=== PATIENT | female | born 1955 | race Caucasian/White ===

== ENCOUNTER 2019-06-07 10:58 | Observation (INO) | payer MEDICARE, BC ==
[2019-06-06 16:42] LABS: PARTIAL THROMBOPLASTIN TIME 29 SECONDS (22-32)
[2019-06-06 16:44] LABS: BASOPHILS # (AUTO) 0.1 X10'3 (0-0.2); BASOPHILS % (AUTO) 0.8 % (0-1); EOSINOPHILS # (AUTO) 0.2 X10'3 (0-0.9); EOSINOPHILS % (AUTO) 2.1 % (0-6); HEMOGLOBIN 13.9 g/dl (12.0-16.0); LYMPHOCYTES # (AUTO) 2.5 X10'3 (1.1-4.8); LYMPHOCYTES % (AUTO) 26.6 % (21-51); MEAN CORPUSCULAR HEMOGLOBIN 31.3 PG (27.0-31.0); MEAN CORPUSCULAR HGB CONC 34.7 g/dL (33.0-36.5); MEAN CORPUSCULAR VOLUME 90.3 FL (78-98); MEAN PLATELET VOLUME 8.1 FL (7.4-10.4); MONOCYTES # (AUTO) 0.8 X10'3 (0-0.9); MONOCYTES % (AUTO) 8.9 % (2-12); NEUTROPHILS # (AUTO) 5.8 X10'3 (1.8-7.7); NEUTROPHILS % (AUTO) 61.6 % (42-75); PLATELET COUNT 247 X10'3 (140-440); RED BLOOD COUNT 4.43 X10'6 (4.20-5.60); RED CELL DISTRIBUTION WIDTH 13.6 % (11.5-14.5); WHITE BLOOD COUNT 9.4 X10'3 (4.5-11.0)
[2019-06-06 16:57] LABS: ALBUMIN 3.8 G/DL (3.4-5.0); ANION GAP 7 (8-16); BLOOD UREA NITROGEN 22 MG/DL (7-18); BUN/CREATININE RATIO 28.2 (6.6-38.0); CALCIUM 9.5 MG/DL (8.5-10.1); CHLORIDE 105 MMOL/L (99-107); CREATININE 0.78 MG/DL (0.40-0.90); GLUCOSE 94 MG/DL (70-104); SODIUM 141 MMOL/L (135-145); TOTAL CARBON DIOXIDE 29.1 MMOL/L (24-32); eGFR 74 ML/MIN
[2019-06-07] VITALS (16 sets, daily range): BP systolic 79–165; BP diastolic 36–92
[~2019-06-07] VITALS: Ht 160 cm; Wt 77.2 kg
[2019-06-07] MEDS ORDERED: diphenhydrAMINE 25mg capsule PO PRN (11:25)
[2019-06-07] MEDS ORDERED: LORazepam 0.5 MG tablet PO PRN (11:25)
[2019-06-07] MEDS ORDERED: acetylcysteine 200 MG/ml 4ml vial PO PRN (11:30)
[2019-06-07] MEDS ORDERED: LIDOcaine/PRILOcaine 5gm cream TP ONE (11:40)
[2019-06-07] MEDS ORDERED: NAPR220T67 PO (11:55)
[2019-06-07] MEDS ORDERED: ATOR20TA66 PO (11:55)
[2019-06-07] MEDS ORDERED: ISOS30TA6 PO (11:55)
[2019-06-07] MEDS ORDERED: OMEP40CA13 PO (11:55)
[2019-06-07] MEDS ORDERED: METO-395 PO (11:55)
[2019-06-07] MEDS: normal saline 1,000 ML IV SCH ×4 (13:43→21:21)
[2019-06-07] MEDS ORDERED: midazolam 2 mg/2 ml injection ONE (14:28)
[2019-06-07] MEDS ORDERED: heparin 1,000unit/ml 10ml vial 10 ML ONE (14:29)
[2019-06-07] MEDS ORDERED: LIDOcaine 1% (10mg/ml)w/preservative injection 20ml MDV ONE (14:29)
[2019-06-07] MEDS ORDERED: nitroGLYCERIN-Tridil 50MG/D5W 250 ML IV ONE (14:29)
[2019-06-07] MEDS ORDERED: fentaNYL/PF 50MCG/1 ML 2ML syringe ONE (14:29)
[2019-06-07] MEDS ORDERED: iohexol 350 MG/ML 50ML vial IV ONE (14:29)
[2019-06-07] MEDS ORDERED: iohexol 350MG/ML 100ml bottle IV ONE ×3 (14:29→15:59)
[2019-06-07] MEDS ORDERED: verapamil 2.5 mg/ml inj IV ONE (14:44)
[2019-06-07] MEDS ORDERED: heparin 25,000 UNIT/250ml bag 250 ML IV ONE (15:30)
[2019-06-07] MEDS ORDERED: ticagrelor 90mg tablet ONE (16:32)
[2019-06-07] MEDS ORDERED: aspirin 325mg tablet PO ONE (17:20)
[2019-06-07] MEDS ORDERED: heparin 25,000 UNIT/250ml bag 250 ML IV SCH (17:23)
[2019-06-07] MEDS ORDERED: cyclobenzaprine 10mg tablet PO PRN (17:25)
[2019-06-07] MEDS ORDERED: OXAZEpam 15mg capsule PO PRN (17:25)
[2019-06-07] MEDS ORDERED: HYDROcodone/acetaminophen 10/325mg tab PO PRN ×2 (17:25)
[2019-06-07] MEDS ORDERED: proCHLORperazine 10 MG/2 ml inj IV PRN (17:25)
[2019-06-07] MEDS ORDERED: magnesium hydroxide 30ml (MOM) UD suspension PO PRN (17:25)
--- NOTE | 2019-06-07 19:20 | NUR ---
I have received report from COSME Pascual in Cardiac Short Stay and had the opportunity to ask questions and assume patient care. Awaiting patient arrival to [facility]016A on PCU.
[2019-06-07] MEDS: docusate sod 100mg capsule PO SCH (20:00)
[2019-06-07] MEDS ORDERED: ticagrelor 90mg tablet PO SCH (20:00)
[2019-06-07] MEDS ORDERED: naproxen sodium 220mg tablet PO PRN (20:15)
[2019-06-08] VITALS (8 sets, daily range): BP systolic 118–146; BP diastolic 48–86
--- NOTE | 2019-06-08 05:19 | NUR ---
Patient cath site observed to have minimal drainage and has not yet clotted off from procedure. 14 mL of air remain in radial cuff. Charge nurse, patient, and family aware.
--- NOTE | 2019-06-08 06:00 | NUR ---
Patient in room PCU 3016. I have received report from Gallo AGUIAR and had the opportunity to ask questions and assume patient care.
--- NOTE | 2019-06-08 06:54 | NUR ---
Problems reprioritized. Patient report given, questions answered & plan of care reviewed with COSME Maza.
[2019-06-08 06:59] LABS: BASOPHILS % (AUTO) 0.5 % (0-1); EOSINOPHILS # (AUTO) 0.1 X10'3 (0-0.9); EOSINOPHILS % (AUTO) 1.5 % (0-6); HEMATOCRIT 37.7 % (35.0-45.0); HEMOGLOBIN 13.1 g/dl (12.0-16.0); LYMPHOCYTES # (AUTO) 1.6 X10'3 (1.1-4.8); MEAN CORPUSCULAR HEMOGLOBIN 31.4 PG (27.0-31.0); MEAN CORPUSCULAR HGB CONC 34.8 g/dL (33.0-36.5); MEAN CORPUSCULAR VOLUME 90.3 FL (78-98); MEAN PLATELET VOLUME 8.1 FL (7.4-10.4); MONOCYTES # (AUTO) 0.9 X10'3 (0-0.9); MONOCYTES % (AUTO) 8.9 % (2-12); NEUTROPHILS # (AUTO) 7.1 X10'3 (1.8-7.7); NEUTROPHILS % (AUTO) 73.1 % (42-75); PLATELET COUNT 204 X10'3 (140-440); RED BLOOD COUNT 4.18 X10'6 (4.20-5.60); RED CELL DISTRIBUTION WIDTH 13.7 % (11.5-14.5); WHITE BLOOD COUNT 9.8 X10'3 (4.5-11.0)
[2019-06-08 07:05] LABS: ALBUMIN 3.2 G/DL (3.4-5.0); ANION GAP 8 (8-16); BLOOD UREA NITROGEN 21 MG/DL (7-18); BUN/CREATININE RATIO 31.8 (6.6-38.0); CALCIUM 9.4 MG/DL (8.5-10.1); CHLORIDE 109 MMOL/L (99-107); CREATININE 0.66 MG/DL (0.40-0.90); GLUCOSE 107 MG/DL (70-104); POTASSIUM 3.5 MMOL/L (3.5-5.1); SODIUM 142 MMOL/L (135-145); TOTAL CARBON DIOXIDE 25.2 MMOL/L (24-32); eGFR 90 ML/MIN
--- NOTE | 2019-06-08 07:40 | NUR ---
DR LEMONS CONTACTED REGARDING CONTINUED BLEEDING AT RADIAL CATH SITE. RADIAL CUFF DEFLATED AND REINFLATED WITH 5 CC AIR. PT STATED NO DISCOMFORT.
--- NOTE | 2019-06-08 07:54 | NUR ---
I SPOKE TO DR LEMONS REGARDING PLAN OF CARE. HE APPROVES AND WILL HAVE A X RAY SERVICE ENGINEER RN COME AND TAKE A LOOK AT SITE.
[2019-06-08] MEDS ORDERED: ticagrelor 90mg tablet PO SCH (08:00)
[2019-06-08] MEDS ORDERED: metoprolol succinate 25mg (24-HOUR) SR. Tablet PO SCH (08:00)
[2019-06-08] MEDS ORDERED: pantoprazole 40mg Tablet.DR PO SCH (08:00)
[2019-06-08] MEDS ORDERED: atorvastatin 20mg tablet PO SCH (08:00)
[2019-06-08] MEDS ORDERED: isosorbide mononitrate 30mg tab.SR.24H PO SCH (08:00)
[2019-06-08] MEDS ORDERED: aspirin 325mg tablet PO SCH (08:30)
--- NOTE | 2019-06-08 08:30 | NUR ---
Plater Hot Dip RN came and observed Right radial insertion site and recommended keeping cuff inflated for 4 more hours.
[2019-06-08] MEDS: docusate sod 100mg capsule PO SCH (08:44)
[2019-06-08] MEDS ORDERED: ATOR40TA PO (11:46)
[2019-06-08] MEDS ORDERED: ASPI-1265 PO (11:46)
[2019-06-08] MEDS ORDERED: TICA90TA2 PO (11:46)
--- NOTE | 2019-06-08 14:45 | NUR ---
Pt DC'd home with daughter. IV removed, canula intact. Tele-box removed and returned to tele-tech. Pt stable upon DC and vitals WNL. DC paper work gone over with Pt and allowed Pt and daughhter to ask questions and then answer them. Pt will make follow up appt with Dr. Stoddard in 4-weeks time. 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 Went over post heart cath activity level and what to do and not to do. Pt's belongings gathered and sent with Pt. Pt wheeled down to lobby via wheelchair by nurse. Pt left with daughter in private vehicle.
== END 2019-06-08 15:04 | disposition home or self-care (01) ==
LOC: SSTAY O 10:58 → PCU 3S 19:59
PROVIDERS: ADMIT Internal Medicine Cardiovascular Disease; ATTEND Internal Medicine Cardiovascular Disease
DX: R94.39 Abnormal result of other cardiovascular function study (principal); R01.1 Cardiac murmur, unspecified; I10 Essential (primary) hypertension; R40.4 Transient alteration of awareness; E78.5 Hyperlipidemia, unspecified; E66.01 Morbid (severe) obesity due to excess calories; Z71.3 Dietary counseling and surveillance; I25.118 Atherosclerotic heart disease of native coronary artery with other forms of angina pectoris
CPT/HCPCS: 36415; 80048; 85025; 85347; 85610; 85730; 93005; 93458; C1725; C1769; C1874; C1894; C9600; G0378; J1644; J2001; J2250; J3010; J7030; J7040; Q0163; Q9967; 99152; 99153; A4620; C9601; J3490

== ENCOUNTER 2019-07-11 12:36 | Outpatient (CLI) | payer MEDICARE, BC ==
[2019-07-11] VITALS (21 sets, daily range): BP systolic 107–155; BP diastolic 58–87
[~2019-07-11 12:36] MED LIST: ASPI-1265 PO; ATOR40TA PO; ISOS30TA6 PO; METO-395 PO; NAPR220T67 PO; OMEP40CA13 PO; TICA90TA2 PO
== END 2019-07-11 23:59 | disposition home or self-care (01) ==
LOC: CARD DIAG 12:36
PROVIDERS: ATTEND Internal Medicine Cardiovascular Disease
DX: R42 Dizziness and giddiness (principal); I10 Essential (primary) hypertension
CPT/HCPCS: 93660

== ENCOUNTER 2019-07-19 05:57 | Day surgery (SDC) | payer MEDICARE, BC ==
[2019-07-18 16:26] LABS: BASOPHILS % (AUTO) 0.5 % (0-1); EOSINOPHILS # (AUTO) 0.2 X10'3 (0-0.9); EOSINOPHILS % (AUTO) 2.4 % (0-6); HEMATOCRIT 39.4 % (35.0-45.0); HEMOGLOBIN 13.6 g/dl (12.0-16.0); LYMPHOCYTES # (AUTO) 1.4 X10'3 (1.1-4.8); LYMPHOCYTES % (AUTO) 21.2 % (21-51); MEAN CORPUSCULAR HEMOGLOBIN 31.5 PG (27.0-31.0); MEAN CORPUSCULAR HGB CONC 34.5 g/dL (33.0-36.5); MEAN CORPUSCULAR VOLUME 91.2 FL (78-98); MONOCYTES # (AUTO) 0.7 X10'3 (0-0.9); MONOCYTES % (AUTO) 9.9 % (2-12); NEUTROPHILS # (AUTO) 4.4 X10'3 (1.8-7.7); PLATELET COUNT 211 X10'3 (140-440); RED BLOOD COUNT 4.32 X10'6 (4.20-5.60); RED CELL DISTRIBUTION WIDTH 13.8 % (11.5-14.5); WHITE BLOOD COUNT 6.7 X10'3 (4.5-11.0)
[2019-07-18 16:28] LABS: ALBUMIN 3.8 G/DL (3.4-5.0); ANION GAP 9 (8-16); BLOOD UREA NITROGEN 19 MG/DL (7-18); BUN/CREATININE RATIO 27.1 (6.6-38.0); CALCIUM 9.3 MG/DL (8.5-10.1); CHLORIDE 103 MMOL/L (99-107); GLUCOSE 117 MG/DL (70-104); POTASSIUM 3.9 MMOL/L (3.5-5.1); SODIUM 139 MMOL/L (135-145); TOTAL CARBON DIOXIDE 27.5 MMOL/L (24-32); eGFR 84 ML/MIN
[2019-07-18 16:31] LABS: PARTIAL THROMBOPLASTIN TIME 29 SECONDS (22-32)
[~2019-07-19] VITALS: Ht 160 cm; Wt 76.4 kg
[2019-07-19] VITALS (14 sets, daily range): BP systolic 93–141; BP diastolic 46–65
[2019-07-19] MEDS ORDERED: normal saline 1,000 ML IV SCH (06:15)
[2019-07-19] MEDS ORDERED: LIDOcaine/PRILOcaine 5gm cream TP ONE (06:15)
[2019-07-19] MEDS ORDERED: LORazepam 0.5 MG tablet PO PRN (06:15)
[2019-07-19] MEDS ORDERED: diphenhydrAMINE 25mg capsule PO PRN (06:15)
[2019-07-19] MEDS ORDERED: ASPI-611 PO (06:28)
[2019-07-19] MEDS ORDERED: PANT-47 PO (06:28)
[2019-07-19] MEDS ORDERED: ATOR40TA PO (06:28)
[2019-07-19] MEDS ORDERED: CLOP75TA15 PO (06:28)
[2019-07-19] MEDS ORDERED: CARV-49 PO (06:28)
[2019-07-19] MEDS ORDERED: midazolam 2 mg/2 ml injection ONE (07:29)
[2019-07-19] MEDS ORDERED: verapamil 2.5 mg/ml inj IV ONE (07:29)
[2019-07-19] MEDS ORDERED: nitroGLYCERIN-Tridil 50MG/D5W 250 ML IV ONE (07:29)
[2019-07-19] MEDS ORDERED: heparin 1,000unit/ml 10ml vial 10 ML ONE (07:30)
[2019-07-19] MEDS ORDERED: LIDOcaine 1% 30ml preserv. free vial ONE (07:30)
[2019-07-19] MEDS ORDERED: iohexol 350 MG/ML 50ML vial IV ONE (07:30)
[2019-07-19] MEDS ORDERED: iohexol 350MG/ML 100ml bottle IV ONE ×2 (07:30→09:05)
[2019-07-19] MEDS ORDERED: fentaNYL/PF 50MCG/1 ML 2ML syringe ONE (07:30)
[2019-07-19] MEDS ORDERED: iohexol 350 MG/1 ML 200ml bottle ONE (07:33)
== END 2019-07-19 17:00 | disposition home or self-care (01) ==
LOC: SSTAY O 05:57
PROVIDERS: ATTEND Internal Medicine Cardiovascular Disease
DX: I25.118 Atherosclerotic heart disease of native coronary artery with other forms of angina pectoris (principal); I10 Essential (primary) hypertension; E78.5 Hyperlipidemia, unspecified; Z98.890 Other specified postprocedural states; Z82.49 Family history of ischemic heart disease and other diseases of the circulatory system; Z87.891 Personal history of nicotine dependence; Z79.01 Long term (current) use of anticoagulants
CPT/HCPCS: 36415; 80048; 85025; 85610; 85730; 92920; 93005; 99152; 99153; C1725; C1769; C1894; J1644; J2001; J2250; J3010; J7030; Q0163; Q9967; 93454; A4620; J3490

== ENCOUNTER 2022-11-13 12:57 | Outpatient (CLI) | payer MEDICARE, BC ==
[~2022-11-13 12:57] MED LIST changes: -ASPI-1265 PO; +ASPI-611 PO; +CARV-49 PO; +CLOP75TA15 PO; -ISOS30TA6 PO; +ISOS30TA84 PO; -METO-395 PO; -NAPR220T67 PO; -OMEP40CA13 PO; +PANT-47 PO; -TICA90TA2 PO
== END 2022-11-13 23:59 | disposition home or self-care (01) ==
LOC: CARD DIAG 12:57
PROVIDERS: ATTEND Internal Medicine Cardiovascular Disease
DX: I08.0 Rheumatic disorders of both mitral and aortic valves (principal)
CPT/HCPCS: 93306

== ENCOUNTER 2024-05-24 06:09 | Day surgery (SDC) | payer MEDICARE, BC ==
[2024-05-23 13:22] LABS: BASOPHILS # (AUTO) 0.1 X10'3 (0-0.2); BASOPHILS % (AUTO) 0.8 % (0-1); EOSINOPHILS # (AUTO) 0.2 X10'3 (0-0.9); EOSINOPHILS % (AUTO) 3.3 % (0-6); HEMATOCRIT 39.7 % (35.0-45.0); HEMOGLOBIN 13.9 g/dl (12.0-16.0); LYMPHOCYTES # (AUTO) 2.3 X10'3 (1.1-4.8); LYMPHOCYTES % (AUTO) 32.8 % (21-51); MEAN CORPUSCULAR HEMOGLOBIN 31.9 PG (27.0-31.0); MEAN CORPUSCULAR HGB CONC 34.9 g/dL (33.0-36.5); MEAN CORPUSCULAR VOLUME 91.3 FL (78-98); MEAN PLATELET VOLUME 7.8 FL (7.4-10.4); MONOCYTES # (AUTO) 0.6 X10'3 (0-0.9); MONOCYTES % (AUTO) 8.6 % (2-12); NEUTROPHILS # (AUTO) 3.8 X10'3 (1.8-7.7); NEUTROPHILS % (AUTO) 54.5 % (42-75); PLATELET COUNT 206 X10'3 (140-440); RED BLOOD COUNT 4.35 X10'6 (4.20-5.60)
[2024-05-23 13:36] LABS: ALBUMIN 3.7 G/DL (3.4-5.0); ANION GAP 6 (8-16); BLOOD UREA NITROGEN 15 MG/DL (7-18); BUN/CREATININE RATIO 23.8 (10.0-20.0); CALCIUM 9.3 MG/DL (8.5-10.1); CHLORIDE 107 MMOL/L (99-107); CREATININE 0.63 MG/DL (0.40-0.90); GLUCOSE 122 MG/DL (70-104); POTASSIUM 4.1 MMOL/L (3.5-5.1); SODIUM 141 MMOL/L (135-145); TOTAL CARBON DIOXIDE 27.8 MMOL/L (24-32); eGFR > 90 ML/MIN
[2024-05-23 13:40] LABS: APTT 29 SECONDS (22-32); PROTHROMBIN TIME 10.9 SECONDS (9.0-12.0)
[2024-05-24] VITALS (14 sets, daily range): BP systolic 116–166; BP diastolic 44–69; PULSE 47–61; RESP 10–17; TEMP 98.3; O2SAT 94–97
[~2024-05-24] VITALS: Ht 162.6 cm; Wt 77.6 kg
[2024-05-24] MEDS ORDERED: ISOS60TA71 PO (06:33)
[2024-05-24] MEDS ORDERED: ROSU40TA71 PO (06:33)
[2024-05-24] MEDS ORDERED: CARV12.549 PO (06:33)
[2024-05-24] MEDS ORDERED: EZET10TA48 PO (06:36)
[2024-05-24] MEDS ORDERED: OXYB5TAB21 PO (06:36)
[2024-05-24] MEDS ORDERED: ESTR42.510 VG (06:44)
[2024-05-24] MEDS ORDERED: fentaNYL/PF 50MCG/1 ML 2ML syringe ONE (07:22)
[2024-05-24] MEDS ORDERED: verapamil 2.5 mg/ml inj IV ONE (07:22)
[2024-05-24] MEDS ORDERED: midazolam 1 mg/ML 2ml injection ONE (07:22)
[2024-05-24] MEDS ORDERED: heparin 1,000unit/ml 10ml vial 10 ML ONE (07:22)
[2024-05-24] MEDS ORDERED: LIDOcaine 1% (10mg/ml) 2ml vial ONE (07:22)
[2024-05-24] MEDS ORDERED: iohexol 350 MG/ML 50ML vial IV ONE (07:22)
[2024-05-24] MEDS ORDERED: nitroGLYCERIN 500mcg/5mL D5W 5 ML IV ONE ×4 (07:23→09:32)
[2024-05-24] MEDS ORDERED: iohexol 350MG/ML 100ml bottle IV ONE ×3 (07:23→09:10)
[2024-05-24] MEDS: diphenhydrAMINE 25mg capsule PO PRN (07:41)
[2024-05-24] MEDS: LORazepam 0.5 MG tablet PO PRN (07:41)
[2024-05-24] MEDS: normal saline 1,000 ML IV SCH (07:42)
[2024-05-24] MEDS ORDERED: LIDOcaine 1% 30ml preserv. free vial ONE (08:20)
[2024-05-24] MEDS ORDERED: heparin 25,000 UNIT/250ml bag 250 ML IV ONE (08:36)
[2024-05-24] MEDS ORDERED: heparin 1,000 UNITS/NS 500ml 500 ML ONE (09:23)
[2024-05-24] MEDS ORDERED: clopidogrel 300mg tablet ONE (10:01)
[2024-05-24] MEDS ORDERED: CLOP75TA34 PO (10:49)
[2024-05-24] MEDS ORDERED: ASPI81TA52 PO (10:50)
== END 2024-05-24 19:20 | disposition home or self-care (01) ==
LOC: SSTAY O 06:09
PROVIDERS: ATTEND Internal Medicine Cardiovascular Disease
DX: I25.10 Atherosclerotic heart disease of native coronary artery without angina pectoris (principal); R94.31 Abnormal electrocardiogram [ECG] [EKG]; I10 Essential (primary) hypertension; E78.5 Hyperlipidemia, unspecified; E66.9 Obesity, unspecified; Z79.82 Long term (current) use of aspirin; Z79.02 Long term (current) use of antithrombotics/antiplatelets; Z79.899 Other long term (current) drug therapy; Z95.5 Presence of coronary angioplasty implant and graft; Z98.890 Other specified postprocedural states; Z68.29 Body mass index [BMI] 29.0-29.9, adult; Z82.49 Family history of ischemic heart disease and other diseases of the circulatory system
CPT/HCPCS: 36415; 80048; 85025; 85347; 85610; 85730; 93005; 93458; 99152; 99153; A4314; A6258; A6402; C1725; C1751; C1769; C1874; C1892; C1894; C9600; J1644; J2001; J2250; J3010; J3490; J7030; J7040; Q0163; Q9967; Z7610; 76937; 92920; A6449